=== PATIENT | male | born 1985 | race Caucasian/White ===

== ENCOUNTER 2019-02-20 17:54 | Inpatient (IN) | payer SELFPAY ==
[2019-02-20 19:11] LABS: ABS Basophils 0.1 10^3/ul (0-0.2); ABS Eosinophils 0.4 10^3/ul (0-0.6); ABS Lymphocytes 3.1 10^3/ul (1.0-4.8); ABS Monocytes 0.6 10^3/ul (0-0.8); ABS Neutrophils 4.3 10^3/ul (1.5-7.7); Eosinophil % 4.4 %; Hematocrit 45 % (42-52); Lymphocyte % 36.9 %; Mean Corpuscular HGB Conc 35 g/dL (31-36); Mean Corpuscular Hemoglobin 31 pg (27-31); Mean Corpuscular Volume 88 fL (80-94); Mean Platelet Volume 7.4 fL (7.4-10.4); Platelet Count 294 10^3/uL (150-450); Red Blood Count 5.16 10^6 /uL (4.18-5.48); Red Cell Distribution Width 13 % (10-15); White Blood Count 8.4 10^3/uL (3.5-10.8)
[2019-02-20 19:22] LABS: ALT 23 U/L (7-52); AST 25 U/L (13-39); Albumin 4.8 g/dL (3.2-5.2); Albumin/Globulin Ratio 1.6 (1-3); Alkaline Phosphatase 49 U/L (34-104); Anion Gap 9 mmol/L (2-11); Blood Urea Nitrogen 9 mg/dL (6-24); CO2 Carbon Dioxide 26 mmol/L (22-32); Calcium 9.4 mg/dL (8.6-10.3); Chloride 103 mmol/L (101-111); EGFR African American 132.6 (>60); EGFR Non-African American 109.6 (>60); Glucose 103 mg/dL (70-100); Potassium 4.1 mmol/L (3.5-5.0); Sodium 138 mmol/L (135-145); Total Protein 7.8 g/dL (6.4-8.9)
[2019-02-20 19:43] LABS: Acetaminophen < 15 mcg/mL; Alcohol 185 mg/dL (<10); Salicylate < 2.50 mg/dL (<30)
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
[2019-02-20] MEDS ORDERED: Calcium Carbonate CHEW TAB* 500 MG (TUMS) PO ONE (21:57)
[2019-02-20] MEDS ORDERED: hydrOXYzine HCL TAB* 50 MG PO ONE (21:57)
[2019-02-20 22:04] LABS: Urine Appearance Clear; Urine Bilirubin Negative (Negative); Urine Blood Negative (Negative); Urine Color Yellow; Urine Glucose Negative (Negative); Urine Ketones Negative (Negative); Urine Nitrite Negative (Negative); Urine Protein Negative (Negative); Urine Specific Gravity 1.018 (1.010-1.030); Urine Urobilinogen Negative (Negative)
[2019-02-20 22:20] LABS: Urine Benzodiazepine Screen None Detected (None Detect); Urine Opiates Screen None Detected (None Detect)
[2019-02-21] MEDS ORDERED: Acetaminophen TAB* 325 MG PO PRN (03:27)
[2019-02-21] MEDS ORDERED: hydrOXYzine HCL TAB* 10 MG PO PRN (03:27)
[2019-02-21] MEDS ORDERED: Al Hydrox/Mg Hydrox/Simet LIQ* 30 ML UDC PO PRN (03:27)
--- NOTE | 2019-02-21 03:29 | ED ---
Progress - Progress Note Progress Note: This patient was signed out from Dr. Puente upon shift change at 22:00 02/20/19 , awaiting MHE and pending disposition. - Consult/PCP Time Called: 23:13 Course/Dx - Course Course Of Treatment: This patient was signed out from Dr. Puente upon shift change at 22:00 02/20/19, awaiting MHE and pending disposition. Per mental health instrumentation and controls technician Dr. Reina Gandara, psychiatry, agrees to admit patient. The patient will be admitted. - Diagnoses Provider Diagnoses: Major depressive disorder, recurrent, unspecified, Unspecified mood [affective ] disorder, Alcohol use disorder Discharge - Sign-Out/Discharge Documenting (check all that apply): Patient Departure - Admit Patient Received Moderate/Deep Sedation with Procedure: No - Discharge Plan Condition: Good Disposition: ADMITTED TO [facility] - Billing Disposition and Condition Condition: GOOD Disposition: Admitted to [facility] - Attestation Statements Document Initiated by Bambie: Yes Documenting Scribe: Valentina Garcia Provider For Whom Harmony is Documenting (Include Credential): George Rush MD Scribe Attestation: Valentina King, scribed for George Rush MD on 02/22/19 at 0432. Scribe Documentation Reviewed: Yes Provider Attestation: The documentation as recorded by the Valentina tejada accurately reflects the service I personally performed and the decisions made by me, George Rush MD Status of Scribe Document: Viewed
[2019-02-21 04:19] VITALS: BP 127/80
[2019-02-21] MEDS ORDERED: Citalopram TAB* 10 MG PO SCH (09:00)
[2019-02-21] MEDS ORDERED: Vitamin THERAPEUTIC TAB PO SCH (09:00)
--- NOTE | 2019-02-21 17:46 | HP ---
CC: Dr. Shruthi May; Bob Witt * HISTORY AND PHYSICAL/DISCHARGE SUMMARY: DATE OF ADMISSION: 02/21/19 DATE OF DISCHARGE: 02/21/19 PROVIDER: Thais Hernandez NP, in Psychiatry. SUPERVISING PHYSICIAN: Maurilio Guzman MD.* (DICTATED BY THAIS HERNANDEZ NP) JUSTIFICATION FOR ADMISSION: The patient is in need of 24-hour supervision and care secondary to suicidal ideation with a plan. CHIEF COMPLAINT: "I felt not myself." HISTORY OF PRESENT ILLNESS: The patient is a 33-year-old single white male with a history of depressive disorder who arrives brought in by law enforcement and is here on a 9.39 status following his episode of drinking 2 bottles of wine and stating that he wanted to drown himself using an anchor on his sailboat. Regulo, who goes by [employer]esp[employer], recently lost a job that he loved. A third constitution party came in to do his complex job and did it for him. The next job he got was difficult and he agreed to leave that job with severance pay and some other benefits. Now, he has had no job in 2 months. He feels as though, "I don't have capacity to step up. No capacity to manage people right now." He left [facility], where his jobs were, to come be with his parents at their [facility] in [place]. He stated that "I felt not myself." He stated that he has "difficulty understanding others' motives." He is working on that with his therapist, trying to understand what that means. He states that he has not had suicidal ideation. He does not feel like he is having dark thoughts. The story that he relates is that he was left alone at his parents' [place] house with the dog. He opened some wine at noon, which he barely drank any of. He worked hard at painting some stairs, then he finished the bottle of wine, decided he wanted to go skateboarding, but could not due to his location. He then got lonely and scared. He got into the sailboat with the skateboard and another bottle of wine. He then sailed from [place] to [facility] with the skateboard. When he arrived at [facility] and docked the boat, he states he could not skateboard because he was too intoxicated. He stated he got scared, he texted his mom, he called his sister. He got upset about his life. He was tired of doing applications for jobs, but he notes, "I will never kill myself. I love my family too much." In the meantime, he has consumed all of the second bottle of wine and when he arrived at the hospital, his blood alcohol level was 185. He tells either his sister or his mother that he is tired of life, he is tired of existing, and that he would like to tie the anchor to his foot and jump in the mei. This was a fleeting thought, however, and he rapidly came to his senses, although he was still intoxicated. Upon arriving home, as he sailed home, he was taken to the hospital where he was evaluated. His mom was in favor of his being admitted so that he would understand the consequences of his actions. Mekhi is not pleased about this, but is in control and careful to make clear that he would never kill himself, that he loves his family too much. In addition, his grandfather (his dad's father) and the is this weekend. PAST PSYCHIATRIC HISTORY: He has a history of depression. When he was younger than 20, he did take Ritalin. In college, he took Zoloft and Paxil, feeling as though he did not fit in well and he had social anxiety. Currently, he is taking Celexa 10 mg. He states, "It is giving me energy, it has given me confidence." This is a surprise as Celexa generally sedates people at least mildly. I did not disabuse Mekhi of this notion as it is useful to him and what he may need is a boost in energy and time from whatever source. He is working with Dr. May in either [place] or [place] and a counselor named, Bob Witt, who is working on metacognition related to anger ; jobs; and robocalls of some type. PAST MEDICAL HISTORY: Denied. FAMILY HISTORY: Denied. SUBSTANCE ABUSE HISTORY: Denied, with the exception of this episode of alcohol abuse. SOCIAL HISTORY: He has his mother and father who are still together. His sister, Glendy, with whom he is close. He works in the [employer] industry when he is working. 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 REVIEW OF SYSTEMS: Mekhi reports feeling alert. He denies shortness of breath, heat or cold intolerance, chest pain or abdominal pain. He denies neurological symptoms. He denies fevers or changes in weight. PHYSICAL EXAMINATION CONSTITUTIONAL: Well developed, well nourished, tearful and intermittently labile. VITAL SIGNS: On 02/21/19 at 0418, temperature was 99, pulse 72, respiration 16 , O2 sat on room air 100, blood pressure 127/80. HEENT: Normocephalic, atraumatic. Eyes: Conjunctivae normal. NECK: Musculoskeletal range of motion normal neck. Negative JVD. Negative stridor. Negative tracheal deviation. CARDIO: Regular rhythm, rate normal. Heart sounds normal. Intact distal pulses. Pedal pulses are 2+ and symmetric. Radial pulses are 2+ and symmetric. Negative murmur. PULMONARY: Chest wall effort normal. Negative respiratory distress. Negative wheezes. Negative rales. ABDOMEN: Soft. Negative tenderness. Negative distention. Negative guarding. Negative rebound. MUSCULOSKELETAL: Negative edema. LYMPHS: Negative cervical adenopathy. NEUROLOGICAL: Alert and oriented x4. SKIN: Warm and dry. LABORATORY DATA: All within normal limits with 2 exceptions. His glucose is high at 103 and his serum alcohol is 185 at 1859 on 02/20/19. MENTAL STATUS EXAM: Mekhi is a slim, 5-feet 8-inch, 135-pound man appearing younger than his stated age with thiago hair, wearing skinny jeans with tears in them. He is calm and cooperative, although slightly irritable under the surface. His speech is normal rate, tone, and volume. He is very measured. He is dysthymic. His affect is constricted. His thought processes are normal. Thought content is free of delusions. He is not homicidal and he vehemently denies suicidality. He is not hallucinating. His insight is good. His judgment is fair. He is alert and oriented x4. DIAGNOSIS: Depressive disorder, NOS. IMPRESSION: Regulo is a 33-year-old single white male who comes to the hospital following an episode where he became intoxicated and determined that it would be better to end his life and communicated this to his family. Shortly following this communication, he changed his mind and wanted to continue living and stated that his previous utterances were a mistake. PLAN: The patient is admitted to the adult behavioral health unit and placed on q.15 minute checks for his own safety. He is encouraged to participate in supportive milieu, individual and group therapies. His estimated length of stay is one day. CONDITION AT THE TIME OF DISCHARGE: Improved, psychiatrically cleared, stable. His mother is agreeable to his discharge. No new meds were started. He will be attending followup with Dr. May and Bbo Witt. MENTAL STATUS EXAM AT THE TIME OF DISCHARGE: Mekhi is calm, cooperative, and makes good eye contact. He is alert and oriented x4. His grooming is good. His speech pace is normal. His thought processes are logical. He is not psychotic or delusional. He denies AH, VH, SI, and HI. His insight and judgment are good. He is willing to follow up and he is urged to see his therapist. DISCHARGE INSTRUCTIONS TO THE PATIENT: A. Medications: 1. Celexa 10 mg daily. 2. Hydroxyzine HCL 10 mg t.i.d. p.r.n. for anxiety. B. Activities are as tolerated. He is a nonsmoker. There are no studies pending at the time of discharge. D. Followup care appointments. He has appointments with Bob Witt on 03/06/19, at 2:[address] Shruthi May on 02/23/19, at 9:00 a.m. E. Disposition. Mekhi is being sent back home to be with his parents for a time before returning to [facility]. F. Substance abuse followup is not indicated. HOSPITAL COURSE: Psychiatric treatment was rendered. Mekhi was admitted to the adult behavioral unit and placed on 15-minute checks for his safety. He struggled on the unit, feeling as though his admission was inappropriate and communication to him was not ideal. Nevertheless, he interacted with peers well and did a good job maintaining control of himself. There were no med changes made, although we did discuss increasing citalopram to 20 mg as that is a more traditional starting point for that medication. Nevertheless, he seems to be improving on it, which is much sooner than would be anticipated. With this in mind, it is possible that he required more social support rather than medication. In either case, it is a safe plan to continue him on citalopram; if he needs to, he can increase to 20 mg. I did meet with his mother, Louisa, and she was agreeable to his discharge today. She is involved in his life and is very concerned about his future and wants the best for him. She is also absorbed with the idea of the for her 's father, which is happening this weekend. No consults were entered for Tray. He is improved, as he is no longer intoxicated. He is no longer suicidal. He does not display symptoms of depression at this time and he is future oriented. THAIS HERNANDEZ, FLORIN [id number]/[facility] #: [id number] POWER
== END 2019-02-21 15:00 | disposition home or self-care (01) | DRG 881 ==
LOC: ED 17:54 → BSU 02-21 03:19
PROVIDERS: ADMIT Psychiatry & Neurology Psychiatry; ATTEND Psychiatry & Neurology Psychiatry
DX: F32.9 Major depressive disorder, single episode, unspecified (principal); R45.851 Suicidal ideations; F39 Unspecified mood [affective] disorder; F10.10 Alcohol abuse, uncomplicated; F17.210 Nicotine dependence, cigarettes, uncomplicated; Y90.6 Blood alcohol level of 120-199 mg/100 ml; Z88.8 Allergy status to other drugs, medicaments and biological substances; Z79.899 Other long term (current) drug therapy
CPT/HCPCS: 36415; 80053; 80307; 80320; 80329; 81003; 84443; 85025; 99238; 99284; A9270-GY; G0480

== ENCOUNTER 2019-06-26 18:00 | Emergency (ER) | payer MEDICAID ==
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
[2019-06-26] MEDS ORDERED: Lorazepam PYXIS KEY PRN (19:05)
[2019-06-26] MEDS ORDERED: Haloperidol INJ IV/IM* 5 MG/ML AMP IM ONE (19:05)
[2019-06-26] MEDS ORDERED: LORazepam INJ* 2 MG/ML 1 ML VIAL IM ONE (19:05)
[2019-06-26] MEDS ORDERED: diPHENhydraMINE IV* 50 MG/ML 1 ml VIAL (BENADRYL) IM ONE (19:05)
[2019-06-26] MEDS ORDERED: LORazepam INJ* 2 MG/ML 1 ML VIAL ONE ×3 (19:06→19:10)
[2019-06-26] MEDS ORDERED: Haloperidol INJ IV/IM* 5 MG/ML AMP ONE (19:10)
[2019-06-26] MEDS ORDERED: diPHENhydraMINE IV* 50 MG/ML 1 ml VIAL (BENADRYL) ONE (19:10)
[2019-06-26 19:56] LABS: Hematocrit 39 % (42-52); Hemoglobin 13.5 g/dL (14.0-18.0); Mean Corpuscular HGB Conc 34 g/dL (31-36); Mean Corpuscular Hemoglobin 29 pg (27-31); Mean Corpuscular Volume 84 fL (80-94); Mean Platelet Volume 6.6 fL (7.4-10.4); Platelet Count 349 10^3/uL (150-450); Red Blood Count 4.67 10^6 /uL (4.18-5.48); Red Cell Distribution Width 16 % (10-15); White Blood Count 6.8 10^3/uL (3.5-10.8)
[2019-06-26 19:59] LABS: ABS Basophils 0.1 10^3/ul (0-0.2); ABS Eosinophils 0.3 10^3/ul (0-0.6); ABS Lymphocytes 2.6 10^3/ul (1.0-4.8); ABS Monocytes 0.4 10^3/ul (0-0.8); ABS Neutrophils 3.5 10^3/ul (1.5-7.7); Eosinophil % 4.9 %; Lymphocyte % 37.7 %; Nucleated Red Blood Cells % 0.2
[2019-06-26 20:12] LABS: ALT 34 U/L (7-52); Albumin 4.3 g/dL (3.2-5.2); Albumin/Globulin Ratio 1.3 (1-3); Alkaline Phosphatase 71 U/L (34-104); BUN/Creatinine Ratio 13.3 (8-20); Blood Urea Nitrogen 11 mg/dL (6-24); CO2 Carbon Dioxide 24 mmol/L (22-32); Calcium 9.2 mg/dL (8.6-10.3); Chloride 103 mmol/L (101-111); EGFR African American 130.8 (>60); EGFR Non-African American 108.1 (>60); Globulin 3.2 g/dL (2-4); Glucose 95 mg/dL (70-100); Sodium 139 mmol/L (135-145); Total Protein 7.5 g/dL (6.4-8.9)
[2019-06-26 20:30] LABS: Acetaminophen < 15 mcg/mL; Alcohol 243 mg/dL (<10); Salicylate < 2.50 mg/dL (<30)
[2019-06-26 20:45] LABS: TSH (Thyroid Stimulating Horm) 0.96 mcIU/mL (0.34-5.60)
[2019-06-26 21:04] LABS: Anion Gap 12 mmol/L (2-11)
[2019-06-26 21:09] LABS: AST 28 U/L (13-39)
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
[2019-06-27 05:58] VITALS: BP 111/68
[2019-06-27 06:14] LABS: Urine Appearance Cloudy; Urine Bilirubin Negative (Negative); Urine Blood Negative (Negative); Urine Color Yellow; Urine Glucose Negative (Negative); Urine Ketones Negative (Negative); Urine Nitrite Negative (Negative); Urine Protein Negative (Negative); Urine Urobilinogen Negative (Negative)
[2019-06-27 06:30] LABS: Urine Benzodiazepine Screen None Detected (None Detect); Urine Opiates Screen None Detected (None Detect)
--- NOTE | 2019-06-27 07:10 | ED ---
Progress - Progress Note Progress Note: Patient is a signout from Dr. Aguirre at 0700 on 06/27/19 pending MHE and disposition. Re-Evaluation - Re-Evaluation 1st re-eval Re-Evaluation Time: 09:15 Change: Unchanged Comment: Pt alert and cooperative. Pt underwent MHE. MHE communicated with pt' s mother. Pt will be d/c'ed with dx of substance induced mood disorder as per Dr. Guzman. Pt will follow up with [facility] and other recovery programs in the area. Course/Dx - Diagnoses Provider Diagnoses: Substance induced mood disorder Discharge ED - Sign-Out/Discharge Documenting (check all that apply): Patient Departure, Receiving Sign-Out Receiving patient FROM: Nat Aguirre - Discharge Plan Condition: Stable Disposition: HOME Referrals: No Primary Care Phys,NOPCP [Primary Care Provider] - - Billing Disposition and Condition Condition: STABLE Disposition: Home - Attestation Statements Document Initiated by Scribe: Yes Documenting Scribe: Rosa Asencio Provider For Whom Harmony is Documenting (Include Credential): Opal Bravo MD. Scribe Attestation: Rosa King, duaneed for Opal Bravo MD. on 06/27/19 at 0917. Scribe Documentation Reviewed: Yes Provider Attestation: The documentation as recorded by the Rosa tejada accurately reflects the service I personally performed and the decisions made by , Opal Bravo MD. Status of Scribe Document: Viewed
== END 2019-06-27 09:54 | disposition home or self-care (01) ==
LOC: ED 18:00
DX: F10.14 Alcohol abuse with alcohol-induced mood disorder (principal); Y90.8 Blood alcohol level of 240 mg/100 ml or more; R45.851 Suicidal ideations; R45.6 Violent behavior; Z72.0 Tobacco use; Z79.899 Other long term (current) drug therapy
CPT/HCPCS: 36415; 80053; 80307; 80320; 80329; 81003; 84443; 85025; 99285; G0480; J1200; J1630; J2060